=== PATIENT | female | born 1960 | race Caucasian/White ===

== ENCOUNTER 2019-07-02 12:09 | Emergency (ER) | payer BC ==
[~2019-07-02] VITALS: Ht 175.3 cm; Wt 77.3 kg
[~2019-07-02 12:09] MED LIST: CALTRATE 600 M600 M1 PO; IBUPROFEN600 MG PO; MINIVELLE1 EAC1 TRANSDERM; PERCOCET 5-3251 TAB PO
[2019-07-02 12:14] VITALS: Ht 175.3 cm; Wt 77.3 kg
[2019-07-02] MEDS ORDERED: ZETIA10 MG PO (12:16)
[2019-07-02] MEDS ORDERED: VITAMIN C WIT1000 MG PO (12:16)
[2019-07-02] MEDS ORDERED: TIROSINT75 MCG PO (12:16)
[2019-07-02 12:41] LABS: BASOPHILS 0.5 % (0-2); EOSINOPHILS 4.8 % (0-7); HEMATOCRIT 40.7 % (36.0-48.0); IMMATURE GRANULOCYTES 0.2 % (0-5); LYMPHOCYTES 30.4 % (15-50); MCH 32.4 pg (26.0-34.0); MCHC 34.4 g/dL (31.0-37.0); MCV 94.2 fL (80.0-100.0); MEAN PLATELET VOLUME 10.8 fL (7.4-10.4); MONOCYTES 10.4 % (2-11); NEUTROPHILS 53.7 % (40-80); PLATELET COUNT 263 10x3/uL (130-400); RBC 4.32 10x6/uL (4.00-5.40); RDW 12.6 % (11.5-14.5)
[2019-07-02 12:49] LABS: APTT 27.8 SECONDS (22.8-39.4); CALC OSMOLALITY 287 mosm/kg (275-300); CALCIUM 8.9 mg/dL (8.5-10.1); CARBON DIOXIDE 32.8 mmol/L (21.0-32.0); CHLORIDE - SERUM 104 mmol/L (98-107); GLUCOSE 89 mg/dL (74-106); INR 0.96 (0.85-1.17); POTASSIUM - SERUM 4.2 mmol/L (3.5-5.1); PROTIME 12.7 SECONDS (11.6-15.0); SODIUM 143 mmol/L (136-145); UREA NITROGEN 23 mg/dL (7-18); eGFR NON AFRICAN AMERICAN 61 mL/min (90-120)
[2019-07-02 13:05] LABS: ALBUMIN 3.7 g/dL (3.4-5.0); ALKALINE PHOSPHATASE 81 U/L (46-116); ALT (SGPT) 33 U/L (10-68); BILIRUBIN - TOTAL 0.34 mg/dL (0.2-1.3); CKMB 1.5 U/L (0.0-3.6); CREATINE KINASE 99 UL (21-215); PROTEIN - SERUM 7.1 g/dL (6.4-8.2)
[2019-07-02 13:06] LABS: TROPONIN-I < 0.017 ng/mL (0.000-0.060)
[2019-07-02 13:38] LABS: T4 THYROXINE 8.7 ug/dL (4.7-13.3)
[2019-07-02 15:20] VITALS: BP 117/60
== END 2019-07-02 15:21 | disposition home or self-care (01) ==
LOC: D.ER 12:09
PROVIDERS: Emergency Medicine
DX: R07.9 Chest pain, unspecified (principal)